=== PATIENT | male | born 1980 | race American Indian/Alaskan Native ===

== ENCOUNTER 2019-09-28 16:24 | Emergency (ER) | payer SELFPAY ==
[2019-09-28] MEDS ORDERED: LORazepam 2 MG/ML VIAL IV ONE (16:55)
[2019-09-28] MEDS ORDERED: chlordiazePOXIDE 25 MG CAP PO ONE (16:55)
--- NOTE | 2019-09-28 16:55 | Emergency Department Report ---
ED Seizure HPI - General Chief Complaint: Seizure Stated Complaint: INTOXICATED Time Seen by Provider: 09/28/19 16:52 Source: patient, EMS Mode of arrival: Stretcher Limitations: No Limitations - History of Present Illness Initial Comments: Mr. Mauro is a 38 yo male with hx of alcohol use who presents to the ED via EMS for seizure witnessed by family member. He normally drinks alcohol daily. His last drink occurred last night. He drinks liquor daily. He did have a seizure in 2018 which required ED visit here. No hx of seizures otherwise. He denies injury or pain due to seizure. He denies tremors or hallucinations. He does not recall issues with alcohol withdrawal. Complaint: seizure -: Sudden, This evening Witnessed:: Yes Trauma: No Seizure History: other (History of alcohol use) Place: home Possible Precipitating Event: alcohol withdrawal Associated Symptoms: denies other symptoms Treatments Prior to Arrival: none - Related Data Previous Rx's Medication Instructions Recorded Last Taken Type levETIRAcetam [Keppra TAB] 500 mg PO BID #60 tablet 04/02/18 Unknown Rx chlordiazePOXIDE [Librium] 25 mg PO Q6H #20 capsule 09/28/19 Unknown Rx Allergies Allergy/AdvReac Type Severity Reaction Status Date / Time No Known Allergies Allergy Unverified 04/02/18 13:49 ED Review of Systems ROS: Stated complaint: INTOXICATED Other details as noted in HPI Comment: All other systems reviewed and negative Constitutional: denies: fever, malaise Respiratory: denies: cough Cardiovascular: denies: chest pain Gastrointestinal: denies: abdominal pain, nausea, vomiting Neurological: denies: headache, weakness, numbness, paresthesias ED Past Medical Hx - Past Medical History Previous Medical History?: No - Surgical History Past Surgical History?: Yes Additional Surgical History: Facial surgeries after trauma - Social History Smoking Status: Never Smoker Substance Use Type: Alcohol - Medications Home Medications: Home Medications Medication Instructions Recorded Confirmed Last Taken Type levETIRAcetam [Keppra TAB] 500 mg PO BID #60 tablet 04/02/18 Unknown Rx chlordiazePOXIDE [Librium] 25 mg PO Q6H #20 capsule 09/28/19 Unknown Rx ED Physical Exam - General Limitations: No Limitations General appearance: alert, in no apparent distress, other (Tremulous) - Head Head exam: Present: atraumatic, normocephalic - Eye Eye exam: Present: normal appearance - ENT ENT exam: Present: mucous membranes moist - Neck Neck exam: Present: normal inspection, full ROM - Respiratory Respiratory exam: Present: normal lung sounds bilaterally. Absent: respiratory distress, wheezes, rales, rhonchi - Cardiovascular Cardiovascular Exam: Present: regular rate, normal rhythm, normal heart sounds. Absent: systolic murmur, diastolic murmur, rubs, gallop - GI/Abdominal GI/Abdominal exam: Present: soft, normal bowel sounds. Absent: distended, tenderness, guarding, rebound - Extremities Exam Extremities exam: Present: normal inspection - Neurological Exam Neurological exam: Present: alert, oriented X3 - Psychiatric Psychiatric exam: Present: normal affect, normal mood - Skin Skin exam: Present: warm, dry, intact, normal color. Absent: rash ED Course Vital Signs 09/28/19 16:54 Pulse Rate 85 Respiratory 94 H Rate Blood Pressure 153/98 [Left] ED Medical Decision Making - Lab Data Result diagrams: 09/28/19 17:06 09/28/19 17:06 - Medical Decision Making Alcohol withdrawal seizure: Patient does have tremor on exam. Treated with IV lorazepam and p.o. Librium in the emergency department. CBC notable for mild leukopenia, elevated AST ALT likely due to alcoholic liver disease. I offered admission to Mr. Mauro. He understands the risk of delirium tremens. He desired to be discharged. He agreed to take Librium. He understands due to his physical dependence that cessation of alcohol would be very dangerous. Our mental health assistant therapy aide provided outpatient resources for alcohol detox. Critical care attestation.: If time is entered above; I have spent that time in minutes in the direct care of this critically ill patient, excluding procedure time. ED Disposition Clinical Impression: Alcohol withdrawal delirium, acute, mixed level of activity, Alcohol withdrawal seizure without complication Disposition: DC-01 TO HOME OR SELFCARE Is pt being admited?: No Does the pt Need Aspirin: No Condition: Stable Instructions: Alcohol Withdrawal (ED) Prescriptions: chlordiazePOXIDE [Librium] 25 mg PO Q6H #20 capsule
[2019-09-28 17:18] LABS: Basophils % (Auto) 1.7 % (0.0-1.8); Eosinophils % (Auto) 0.1 % (0.0-4.3); Hematocrit 38.6 % (35.5-45.6); Hemoglobin 13.2 gm/dl (11.8-15.2); Lymphocytes # (Auto) 0.6 K/mm3 (1.2-5.4); Lymphocytes % (Auto) 20.5 % (13.4-35.0); Mean Corpuscular HGB Conc 34 % (32-34); Mean Corpuscular Volume 110 fl (84-94); Monocytes # (Auto) 0.4 K/mm3 (0.0-0.8); Monocytes % (Auto) 12.5 % (0.0-7.3); Platelet Count 109 K/mm3 (140-440); Red Blood Count 3.51 M/mm3 (3.65-5.03); Red Cell Distribution Width 13.4 % (13.2-15.2)
[2019-09-28 17:40] LABS: Alanine Aminotransferase 94 units/L (7-56); Albumin 4.2 g/dL (3.9-5); BUN/Creatinine Ratio 7; Blood Urea Nitrogen 7 mg/dL (9-20); Calcium 9.3 mg/dL (8.4-10.2); Hemolysis Index 7
[2019-09-28 19:39] VITALS: BP 155/95
== END 2019-09-28 19:39 | disposition home or self-care (01) ==
LOC: ED 16:24
DX: F10.231 Alcohol dependence with withdrawal delirium (principal); F10.239 Alcohol dependence with withdrawal, unspecified; Z79.899 Other long term (current) drug therapy
CPT/HCPCS: 36415; 80053; 85025; 96374; 99284; J2060; 80320; G0480